=== PATIENT | female | born 1970 | race Caucasian/White ===

== ENCOUNTER 2018-08-01 14:24 | Emergency (ER) | payer OTHER ==
[~2018-08-01] VITALS: Ht 154.9 cm; Wt 84.1 kg
[2018-08-01 14:27] VITALS: BP 110/75; TEMP 98.3
[2018-08-01] MEDS ORDERED: PRINIVIL10 MG PO (14:29)
[2018-08-01] MEDS ORDERED: PRILOTC (14:30)
[2018-08-01 14:41] LABS: COLLECTION METHOD CLEAN CATCH
[2018-08-01 14:50] LABS: MUCOUS Present /lpf; PH 6 (5-8); SQUAMOUS EPITHELIAL 0-2 /hpf; URINE APPEARANCE Clear; URINE BACTERIA Rare /hpf; URINE BILIRUBIN Negative (NEGATIVE); URINE BLOOD 3+ (NEGATIVE); URINE COLOR Amber; URINE GLUCOSE Negative (NEGATIVE); URINE KETONE Negative (NEGATIVE); URINE LEUKOCYTE ESTERASE Negative (NEGATIVE); URINE NITRATE Positive (NEGATIVE); URINE PROTEIN(semi-quant) 2+ (NEGATIVE); URINE RBC >50 /hpf; URINE UROBILINOGEN >=4.0 mg/dL (NEGATIVE)
[2018-08-01] MEDS ORDERED: CEPHALEXIN500 M1 PO (14:58)
[2018-08-01 15:16] VITALS: PULSE 68
== END 2018-08-01 15:16 | disposition home or self-care (01) ==
LOC: COL.ER 14:24
PROVIDERS: Physician Assistant
DX: N39.0 Urinary tract infection, site not specified (principal); Z90.49 Acquired absence of other specified parts of digestive tract; Z90.710 Acquired absence of both cervix and uterus